=== PATIENT | male | born 1965 | race Hispanic/Latino ===

== ENCOUNTER 2024-10-03 16:57 | Emergency (ER) | payer OTHER ==
[~2024-10-03] VITALS: Ht 167.6 cm; Wt 92.5 kg
--- NOTE | 2024-10-03 17:35 | ERN ---
General Chief Complaint: Cellulitis Stated Complaint: CELLULITIS Time Seen by MD: 17:04 History of Present Illness Initial Comments 59-year-old male patient brought in by law enforcement for symptoms of left leg pain and swelling. Patient noticed swelling and pain and left leg [id number] since yesterday. Patient describes the pain as tight and feels as if it is going to explode. Patient also has warmth, tenderness, erythema [id number]. Patient says his pain having a little congestion last week and was prescribed amoxicillin. Patient denies any trauma and bites to the leg. Patient has a past medical history diabetes and hypertension. Allergies: Coded Allergies: ibuprofen (Unverified Allergy, Unknown, 10/03/24) piroxicam (Unverified Allergy, Unknown, 10/03/24) tolmetin (Unverified Allergy, Unknown, 10/03/24) Past Medical History Past Medical History: Diabetes-Type II, Hypertension Past Surgical History: Other Surgical History Other: LT KNEE SX, LT EAR SX ROS Dictation CONSTITUTIONAL: No chills, no fever, no weakness, no diaphoresis, no malaise. HEAD/FACE: No signs of trauma. EENT: No eye pain, no blurred vision, no tearing, no double vision, no ear pain, no ear discharge, no nose pain, no nasal congestion, no throat pain, no throat swelling, no mouth pain. RESPIRATORY: No cough, no SOB, no orthopnea, no PND, no wheezing. CARDIOVASCULAR: No chest pain, no edema, no palpitations, no syncope. GASTROINTESTINAL/ABDOMINAL: No abdominal pain, no constipation, no diarrhea, no nausea, no vomiting. GENITOURINARY: No abnormal discharge, no dysuria, no frequent urination, no hematuria. No complaints of pain in the genitals. MUSCULOSKELETAL: No back pain, no gout, no joint pain, no joint swelling, no muscle pain, no muscle stiffness, no neck pain. INTEGUMENTARY: No change in color, no change in hair/nails, no dryness, no lesion, no lumps, no rash. NEUROLOGICAL/PSYCH: No anxiety, not depressed, no emotional problem, no headache, no numbness, no pre-existing deficit, no history of seizures, no trem ors, no weakness. HEMATOLOGIC/LYMPHATIC: Not anemic, no history of blood clots, no apparent bleeding, no bruising, glands not swollen. All Systems Negative, Except as Noted. Physical Exam Physical Exam Dictation VITAL SIGNS: Reviewed. GENERAL APPEARANCE: Alert, oriented x3 HEAD AND FACE: Non-traumatic. EYES: PERRL, pink conjunctivas, eyelid no trauma, anterior chamber clear. EARS: Pinnas intact and no signs of trauma or erythema. Ear canals clear and no discharge. TMs no erythema. NOSE: No discharge, no bleeding. OROPHARYNX: Mouth normal, teeth no caries, tongue pink. Pharynx clear, no erythema. Tonsils no exudates, no abscesses noted. Mucous membrane moist. NECK: Supple, non-tender, no thyromegaly, no masses, no JVD, no bruits. BREAST: Deferred. CHEST: No tenderness, no crepitus, no paradoxical movement, no retractions. LUNGS: Clear, well-ventilated, symmetric, no rales, no wheezing, no rhonchi, no stridor, good breath sounds bilaterally. HEART: Regular rate, regular rhythm, no murmur, no gallops. VASCULAR: No peripheral edema. ABDOMEN: Soft, positive bowel sounds, nondistended, no guarding, nontender, no rebound, no masses no hepatomegaly, no splenomegaly, no Peters's sign, no hernias. RECTAL: Deferred. GENITAL: Deferred. NEUROLOGICAL: Normal speech, gross motor function intact, gross sensory function intact. MUSCULOSKELETAL: Neck nontender, full range of motion, back nontender, full range of motion. EXTREMITIES: Nontender, full range of motion. SKIN: Color pink, dry, no turgor, no rash, no lacerations, no abrasions, no contusions. LYMPHATICS: Deferred. Results Laboratory and Microbiology Lab and Micro Result Laboratory Tests Test 10/03/24 18:09 10/03/24 19:56 White Blood Count 5.9 K/uL (4.8-10.8) Red Blood Count 4.66 MIL/uL (4.50-6.20) Hemoglobin 15.1 g/dL (14.0-18.0) Hematocrit 42.4 % (42-54) Mean Corpuscular Volume 91.0 fL (79-99) Mean Corpuscular Hemoglobin 32.4 pg (27.0-33.0) Mean Corpuscular Hemoglobin Concent 35.6 g/dL (32.0-36.0) Red Cell Distribution Width 12.3 % (11.0-15.5) Platelet Count 94 K/uL (130-400) L Mean Platelet Volume 9.6 fL (7.5-10.5) Immature Granulocyte % (Auto) 0.7 % (0-1) Neutrophils (%) (Auto) 80.0 % (40.0-77.0) H Lymphocytes (%) (Auto) 12.8 % (21.0-51.0) L Monocytes (%) (Auto) 6.0 % (3.0-13.0) Eosinophils (%) (Auto) 0.2 % (0.0-8.0) Basophils (%) (Auto) 0.3 % (0.0-5.0) Neutrophils # (Auto) 4.7 K/uL (1.8-7.7) Lymphocytes # (Auto) 0.8 K/uL (1.0-4.8) L Monocytes # (Auto) 0.4 K/uL (0.1-1.0) Eosinophils # (Auto) 0.01 K/uL (0.00-0.70) Basophils # (Auto) 0.02 K/uL (0.00-0.20) Absolute Immature Granulocyte (auto 0.04 K/uL (0-1) Nucleated Red Blood Cells 0.0 % (0.0-0.19) Erythrocyte Sedimentation Rate 49 MM/HR (0-20) H Sodium Level 138 mmol/L (136-145) Potassium Level 3.6 mmol/L (3.5-5.1) Chloride Level 102 mmol/L (101-111) Carbon Dioxide Level 30 mmol/L (21-32) Blood Urea Nitrogen 14 mg/dL (7-18) Creatinine 0.9 mg/dL (0.5-1.3) Glomerular Filtration Rate Calc 97 mL/min (>90) Random Glucose 132 mg/dL (70-105) H Total Calcium 9.0 mg/dL (8.5-10.1) Aspartate Amino Transf (AST/SGOT) 52 U/L (10-37) H Alanine Aminotransferase (ALT/SGPT) 33 U/L (12-78) C-Reactive Protein, Quantitative 260.10 mg/L (0.5-3.0) H Procalcitonin 1.21 ng/mL (0.05-0.5) H Lactic Acid Level 2.0 mmol/L (0.8-2.5) REASON: Left leg swelling and pain ORDERING PHYSICIAN: CYNTHIA PENNINGTON MD PROCEDURE: VENOUS UNI - US VENOUS DOPPLER UNILATERAL EXAM: US for Deep Venous Thrombosis, left Lower Extremity CLINICAL HISTORY: Patient presents with leg pain and swelling. TECHNIQUE: Real-time ultrasound scan of the veins of the left lower extremity with color Doppler flow, spectral waveform analysis, and compression. COMPARISON: None provided. FINDINGS: DEEP VEINS: The common femoral vein (CFV), profunda femoris artery (PFA), proximal, mid, and distal superficial femoral vein (SFV), popliteal vein, and posterior tibial veins (PTV) are compressible with normal color Doppler flow and augmentation. No evidence of intraluminal thrombus. No evidence of deep venous thrombosis. SUPERFICIAL VEINS: The great saphenous vein (GSV) is patent with normal compressibility and Doppler flow. LYMPH NODES: There are multiple enlarged left inguinal lymph nodes measuring 4.4 x 1.1 cm, 1.6 x 1.2 cm, 1.2 x 1.3 cm, 1.5 x 1.1 cm and 2.2 x 1.8 cm. SOFT TISSUES: No popliteal fossa cyst or other soft tissue abnormality. IMPRESSION: No deep venous thrombosis in the left lower extremity. Multiple enlarged left inguinal lymph nodes, largest measuring 4.4 x 1.1 cm. /[place] REASON: cellulitus ORDERING PHYSICIAN: DENNYS JORGE OIL WELL DRILLER PROCEDURE: TIBFIB LT - TIBIA/FIBULA 2VWS LT EXAM: CR Left Tibia and Fibula, 3 views. CLINICAL HISTORY: Cellulitis. COMPARISON: None provided. FINDINGS: No acute fracture or aggressive appearing osseous lesion. Status post ACL reconstruction. Mild osteoarthritis in the included left knee and ankle joints. Mild diffuse soft tissue swelling is present. IMPRESSION: No acute bony abnormality is evident. /[place] Labs Reviewed?: Yes MDM The patient is a 59-year-old male with a history of diabetes who presents to the emergency department with complaints of left lower extremity swelling and redness onset yesterday. Patient is currently being treated for an upper respiratory infection on amoxicillin. CBC showed no leukocytosis, no anemia, chemistry showed a normal renal function, procalcitonin of 1.21, lactic acid of 2.0. Ultrasound showed no evidence of DVT, x-ray was unremarkable. On physical exam patient is in no acute distress, nontoxic appearance. We will discharge patient on clindamycin for cellulitis. Patient is under police custody and isn't interested to return if symptoms worsen. Differential diagnosis: Cellulitis, DVT, sepsis Need for hospitalization: Patient does not meet criteria for hospitalization. There are no social concerns with this patient. ED Course Orders Procedure Category Date Status Time Us Venous Doppler US 10/03/24 Resulted Unilateral 17:23 Cbc With Differential LAB 10/03/24 Complete 17:23 Basic Metabolic Panel LAB 10/03/24 Complete 17:23 Erythrocyte LAB 10/03/24 Complete Sedimentation Rate 17:23 Crp Quantitative LAB 10/03/24 Complete 17:23 Aspartate LAB 10/03/24 Complete Aminotransferase 17:23 Alanine LAB 10/03/24 Complete Aminotransferase 17:23 Tibia/Fibula 2vws Lt RAD 10/03/24 Resulted 18:56 Lactic Acid LAB 10/03/24 Complete 18:56 Procalcitonin LAB 10/03/24 Complete 18:56 *Nursing CPOE 10/03/24 Transmitted Communication: 19:16 Clindamycin 150mg Cap PHA 10/03/24 In Process (Cleocin 150mg Cap 21:00 Hydrocodone/Apap PHA 10/03/24 In Process 5/325 ([place] 5/325mg) 21:00 Current Medications Medications (Trade) Dose Ordered Sig/Eneida Route PRN Reason Start Time Stop Time Status Last Admin Dose Admin Acetaminophen/ Hydrocodone Bitart (NORco 5/325MG) 1 tab ONCE ONCE PO 10/03/24 21:00 10/03/24 21:01 Clindamycin HCl (Cleocin 150mg Cap) 300 mg ONCE ONCE PO 10/03/24 21:00 10/03/24 21:01 Vital Signs Date Time Temp Pulse Resp B/P (MAP) Pulse Ox O2 Delivery O2 Flow Rate FiO2 10/03/24 16:58 99.7 105 16 146/88 100 Room Air DX & DISP Disposition: Discharge Departure Impression: Primary Impression: Cellulitis of lower leg Additional Impression: Cellulitis of left lower leg Condition: Stable Scripts Clindamycin HCl (Clindamycin HCl) 300 Mg Capsule 1 CAP PO QID for 10 Days, #40 CAP 0 Refills Prov: DENNYS JORGE 10/03/24 Additional Instructions: Please take your medications as prescribed. Follow up with the primary doctor in 1-2 days. If anything worsens please return to ER. FOLLOW-UP WITH PRIMARY CARE PROVIDER IN 1 TO 2 DAYS. TAKE MEDICATIONS DIRECTED HERE IN THE EMERGENCY ROOM. OKAY TO CONTINUE HOME MEDICATIONS UNLESS OTHERWISE DISCUSSED DURING YOUR VISIT IN THE EMERGENCY ROOM TODAY. RETURN TO YOUR NEAREST EMERGENCY ROOM IF SYMPTOMS WORSEN OR IF THERE IS NO IMPROVEMENT. CALL 911 IF YOU NEED IMMEDIATE ASSISTANCE. TAKE TYLENOL [id number] NEEDED AND IF NO CONTRAINDICATIONS ARE PRESENT. INCREASE ORAL HYDRATION. A WOUND CULTURE OR URINE CULTURE WAS ORDERED HERE IN THE EMERGENCY ROOM DEPARTMENT PLEASE FOLLOW-UP WITH PRIMARY CARE PROVIDER AND ADVISE THEM TO GET REPEAT PORTS FROM OUR FACILITY. IF YOU HAD ANY HIEN WRAP/SPLINTS THAT WERE APPLIED HERE, PLEASE DO NOT REMOVE THEM UNTIL YOU SEE YOUR PRIMARY CARE OR SPECIALTY. Referrals: SELF,REFERRAL (PCP) Time of Disposition: 21:02 I have reviewed the case, and I agree with, Diagnosis and Plan CYNTHIA PENNINGTON MD Oct 03, 2024 17:35 DENNYS JOREG Oct 03, 2024 21:04
[2024-10-03 18:38] LABS: IMMATURE GRANULOCYTE ABSOLUTE 0.04 K/uL (0-1); NUCLEATED RED BLOOD CELLS 0.0 % (0.0-0.19); PLATELET COUNT (AUTO) 94 K/uL (130-400); RED BLOOD CELL COUNT(AUTO) 4.66 MIL/uL (4.50-6.20); RED CELL DISTRIBUTION WIDTH 12.3 % (11.0-15.5); WHITE BLOOD COUNT (AUTO) 5.9 K/uL (4.8-10.8)
[2024-10-03 18:45] LABS: CREATININE 0.9 mg/dL (0.5-1.3); GLOMERULAR FILTR. RATE CALC 97.0 mL/min (>90); GLUCOSE,RANDOM 132.0 mg/dL (70-105); SODIUM SERUM 138.0 mmol/L (136-145); UREA NITROGEN, BLOOD 14.0 mg/dL (7-18)
[2024-10-03 18:48] LABS: ASPARTATE AMINOTRANSFERASE 52.0 U/L (10-37)
--- NOTE | 2024-10-03 19:22 | HMCIMG ---
EXAM: US for Deep Venous Thrombosis, left Lower Extremity CLINICAL HISTORY: Patient presents with leg pain and swelling. TECHNIQUE: Real-time ultrasound scan of the veins of the left lower extremity with color Doppler flow, spectral waveform analysis, and compression. COMPARISON: None provided. FINDINGS: DEEP VEINS: The common femoral vein (CFV), profunda femoris artery (PFA), proximal, mid, and distal superficial femoral vein (SFV), popliteal vein, and posterior tibial veins (PTV) are compressible with normal color Doppler flow and augmentation. No evidence of intraluminal thrombus. No evidence of deep venous thrombosis. SUPERFICIAL VEINS: The great saphenous vein (GSV) is patent with normal compressibility and Doppler flow. LYMPH NODES: There are multiple enlarged left inguinal lymph nodes measuring 4.4 x 1.1 cm, 1.6 x 1.2 cm, 1.2 x 1.3 cm, 1.5 x 1.1 cm and 2.2 x 1.8 cm. SOFT TISSUES: No popliteal fossa cyst or other soft tissue abnormality. IMPRESSION: No deep venous thrombosis in the left lower extremity. Multiple enlarged left inguinal lymph nodes, largest measuring 4.4 x 1.1 cm. /[place]
[2024-10-03 19:48] LABS: ERYTHROCYTE SEDIMENTATION RATE 49 MM/HR (0-20)
--- NOTE | 2024-10-03 20:41 | HMCIMG ---
EXAM: CR Left Tibia and Fibula, 3 views. CLINICAL HISTORY: Cellulitis. COMPARISON: None provided. FINDINGS: No acute fracture or aggressive appearing osseous lesion. Status post ACL reconstruction. Mild osteoarthritis in the included left knee and ankle joints. Mild diffuse soft tissue swelling is present. IMPRESSION: No acute bony abnormality is evident. /[place]
[2024-10-03] MEDS ORDERED: CLIN-141 PO (21:04)
[2024-10-03] MEDS: CLINDAMYCIN 150 MG CAP PO ONE (21:56)
[2024-10-03] MEDS: HYDROcodone/APAP 5/325 1 TAB TABLET PO ONE (21:56)
[2024-10-03 22:04] VITALS: BP 135/78; PULSE 81; RESP 18; TEMP 98.3; O2SAT 99
[2024-10-04] MEDS ORDERED: LISI20TA24 PO (20:02)
[2024-10-04] MEDS ORDERED: NPH,100V11 SQ (20:02)
[2024-10-04] MEDS ORDERED: PROM25TA7 PO (20:02)
[2024-10-04] MEDS ORDERED: CARV3.12 PO (20:02)
[2024-10-04] MEDS ORDERED: METF-446 PO (20:02)
[2024-10-04] MEDS ORDERED: CLOT15CR23 TP (20:02)
[2024-10-04] MEDS ORDERED: AMOX500C2 PO (20:02)
[2024-10-04] MEDS ORDERED: ESCI-8 PO (20:02)
[2024-10-04] MEDS ORDERED: ACET-3859 PO (20:02)
[2024-10-04] MEDS ORDERED: INSREG SQ (20:02)
[2024-10-04] MEDS ORDERED: GLIP10TA16 PO (20:02)
[2024-10-04] MEDS ORDERED: TERA10CA4 PO (20:02)
[2024-10-04] MEDS ORDERED: TOLN28CR6 TP (20:02)
[2024-10-04] MEDS ORDERED: FAMO20TA8 PO (20:02)
[2024-10-04] MEDS ORDERED: DIPH50CA37 PO (20:02)
[2024-10-04] MEDS ORDERED: CETI10TA87 PO (20:02)
== END 2024-10-03 22:06 ==
LOC: EDH 16:57 → EEVIPCON 16:57 → EDH 22:06
DX: L03.116 Cellulitis of left lower limb (principal); E11.9 Type 2 diabetes mellitus without complications; I10 Essential (primary) hypertension; Z88.6 Allergy status to analgesic agent
CPT/HCPCS: 36415; 73590; 80048; 83605; 84145; 84450; 84460; 85025; 85651; 86140; 93971; 99284

== ENCOUNTER 2024-10-04 10:08 | Inpatient (IN) | payer OTHER ==
[~2024-10-04] VITALS: Ht 167.6 cm; Wt 89.0 kg
[~2024-10-04 10:08] MED LIST: CLIN-141 PO
[2024-10-04] MEDS ORDERED: VANCOMYCIN KIT 1 GM/250 ML IV.KIT IV SCH (10:30)
[2024-10-04 10:42] LABS: IMMATURE GRANULOCYTE ABSOLUTE 0.05 K/uL (0-1); NUCLEATED RED BLOOD CELLS 0.0 % (0.0-0.19); PLATELET COUNT (AUTO) 106 K/uL (130-400); RED BLOOD CELL COUNT(AUTO) 4.22 MIL/uL (4.50-6.20); RED CELL DISTRIBUTION WIDTH 12.5 % (11.0-15.5); WHITE BLOOD COUNT (AUTO) 5.9 K/uL (4.8-10.8)
[2024-10-04 10:49] LABS: CREATININE 0.8 mg/dL (0.5-1.3); GLOMERULAR FILTR. RATE CALC 101.0 mL/min (>90); GLUCOSE,RANDOM 128.0 mg/dL (70-105); SODIUM SERUM 135.0 mmol/L (136-145); UREA NITROGEN, BLOOD 15.0 mg/dL (7-18)
[2024-10-04] MEDS: LACTATED RINGERS 1000ML 1,000 ML IV SCH (11:21)
[2024-10-04] MEDS ORDERED: VANCOMYCIN PROTOCOL PER PHARMACY IV SCH (11:30)
--- NOTE | 2024-10-04 11:38 | ERN ---
General Chief Complaint: Lower Extremity Pain/Injury Stated Complaint: LEFT LEG SWELLING Time Seen by MD: 10:13 History of Present Illness Initial Comments Mr. Montes is a 59-year-old male brought in by law enforcement for worsening left leg cellulitis. Patient noticed redness warmth and pain in his left lower extremity below-knee three days ago. Patient was seen in ED yesterday for the same symptoms and was prescribed oral clindamycin. However patient's symptoms worsened and the rash has spread above his knee to his upper thigh. Patient states pain worsened. Patient denies fever. Allergies: Coded Allergies: ibuprofen (Unverified Allergy, Unknown, 10/03/24) piroxicam (Unverified Allergy, Unknown, 10/03/24) tolmetin (Unverified Allergy, Unknown, 10/03/24) Home Meds Active Scripts Clindamycin HCl (Clindamycin HCl) 300 Mg Capsule, 1 CAP PO QID for 10 Days, #40 CAP 0 Refills Prov:DENNYS JORGE SYSTEMS TEST ANALYST 10/03/24 Past Medical History Past Medical History: Diabetes-Type II, Hypertension Past Surgical History: Other Surgical History Other: LT KNEE SX, LT EAR SX ROS Dictation CONSTITUTIONAL: No chills, no fever, no weakness, no diaphoresis, no malaise. HEAD/FACE: No signs of trauma. EENT: No eye pain, no blurred vision, no tearing, no double vision, no ear pain, no ear discharge, no nose pain, no nasal congestion, no throat pain, no throat swelling, no mouth pain. RESPIRATORY: No cough, no SOB, no orthopnea, no PND, no wheezing. CARDIOVASCULAR: No chest pain, no edema, no palpitations, no syncope. GASTROINTESTINAL/ABDOMINAL: No abdominal pain, no constipation, no diarrhea, no nausea, no vomiting. GENITOURINARY: No abnormal discharge, no dysuria, no frequent urination, no hematuria. No complaints of pain in the genitals. MUSCULOSKELETAL: No back pain, no gout, no joint pain, no joint swelling, no muscle pain, no muscle stiffness, no neck pain. INTEGUMENTARY: Left lower extremity erythematous rash from above ankle to upper thigh, no change in hair/nails, no dryness, no lesion, no lumps. NEUROLOGICAL/PSYCH: No anxiety, not depressed, no emotional problem, no headache, no numbness, no pre-existing deficit, no history of seizures, no tremors, no weakness. HEMATOLOGIC/LYMPHATIC: Not anemic, no history of blood clots, no apparent bleeding, no bruising, glands not swollen. All Systems Negative, Except as Noted. Physical Exam Physical Exam Dictation VITAL SIGNS: Reviewed. GENERAL APPEARANCE: Alert, oriented x3 HEAD AND FACE: Non-traumatic. EYES: PERRL, pink conjunctivas, eyelid no trauma, anterior chamber clear. EARS: Pinnas intact and no signs of trauma or erythema. Ear canals clear and no discharge. TMs no erythema. NOSE: No discharge, no bleeding. OROPHARYNX: Mouth normal, teeth no caries, tongue pink. Pharynx clear, no erythema. Tonsils no exudates, no abscesses noted. Mucous membrane moist. NECK: Supple, non-tender, no thyromegaly, no masses, no JVD, no bruits. BREAST: Deferred. CHEST: No tenderness, no crepitus, no paradoxical movement, no retractions. LUNGS: Clear, well-ventilated, symmetric, no rales, no wheezing, no rhonchi, no stridor, good breath sounds bilaterally. HEART: Regular rate, regular rhythm, no murmur, no gallops. VASCULAR: No peripheral edema. ABDOMEN: Soft, positive bowel sounds, nondistended, no guarding, nontender, no rebound, no masses no hepatomegaly, no splenomegaly, no Peters's sign, no hernias. RECTAL: Deferred. GENITAL: Deferred. NEUROLOGICAL: Normal speech, gross motor function intact, gross sensory fun ction intact. MUSCULOSKELETAL and Extremities: LLE poorly defined erythematous rash above ankle to upper thigh, tender to palpation. SKIN: Erythematous rash above left ankle to upper thigh, Color pink, dry, no turgor, no lacerations, no abrasions, no contusions. LYMPHATICS: Swollen left inguinal lymph nodes Results Laboratory and Microbiology Lab and Micro Result Laboratory Tests Test 10/04/24 10:33 White Blood Count 5.9 K/uL (4.8-10.8) Red Blood Count 4.22 MIL/uL (4.50-6.20) L Hemoglobin 13.7 g/dL (14.0-18.0) L Hematocrit 37.8 % (42-54) L Mean Corpuscular Volume 89.6 fL (79-99) Mean Corpuscular Hemoglobin 32.5 pg (27.0-33.0) Mean Corpuscular Hemoglobin Concent 36.2 g/dL (32.0-36.0) H Red Cell Distribution Width 12.5 % (11.0-15.5) Platelet Count 106 K/uL (130-400) L Mean Platelet Volume 9.8 fL (7.5-10.5) Immature Granulocyte % (Auto) 0.9 % (0-1) Neutrophils (%) (Auto) 72.8 % (40.0-77.0) Lymphocytes (%) (Auto) 16.4 % (21.0-51.0) L Monocytes (%) (Auto) 8.2 % (3.0-13.0) Eosinophils (%) (Auto) 1.2 % (0.0-8.0) Basophils (%) (Auto) 0.5 % (0.0-5.0) Neutrophils # (Auto) 4.3 K/uL (1.8-7.7) Lymphocytes # (Auto) 1.0 K/uL (1.0-4.8) Monocytes # (Auto) 0.5 K/uL (0.1-1.0) Eosinophils # (Auto) 0.07 K/uL (0.00-0.70) Basophils # (Auto) 0.03 K/uL (0.00-0.20) Absolute Immature Granulocyte (auto 0.05 K/uL (0-1) Nucleated Red Blood Cells 0.0 % (0.0-0.19) Red Blood Cell Morphology See comments Sodium Level 135 mmol/L (136-145) L Potassium Level 3.6 mmol/L (3.5-5.1) Chloride Level 100 mmol/L (101-111) L Carbon Dioxide Level 30 mmol/L (21-32) Blood Urea Nitrogen 15 mg/dL (7-18) Creatinine 0.8 mg/dL (0.5-1.3) Glomerular Filtration Rate Calc 101 mL/min (>90) Random Glucose 128 mg/dL (70-105) H Total Calcium 8.2 mg/dL (8.5-10.1) L MDM Chief complaint: Patient presented with worsening left leg cellulitis that extends from above the ankle to upper thigh. Past medical history: Diabetes, hypertension Vitals: Vitals are stable, borderline tachycardic Review of systems: ROS is remarkable for poorly defined painful, erythematous rash extending about uncontrolled upper thigh. Physical Exam: PE is remarkable for tender erythematous rash extending above the ankle to the upper thigh, no crepitus. Labs: His labs showed elevated ESR 49, CRP 260 procalcitonin, 1.2. His white blood cell count is normal and sugars are 128. Imaging: Left leg venous Doppler ruled out DVT, significant for swollen left inguinal lymph nodes. No osseous deformities found. Differential diagnosis: Leg cellulitis, DVT, necrotizing fasciitis, osteomyeli tis. Assessment and Plan: Patient presented to the ED with worsening left leg cellulitis extending up to the upper thigh. Oral antibiotics failed to control the infection. Patient is a prisoner and and has difficulties following up on an outpatient basis. Patient needs intravenous antibiotic therapy and surgical consult therefore requiring admission. ED Course Orders Procedure Category Date Status Time Lactated Ringers PHA 10/04/24 In Process 1000ml (Lactated 10:30 Ceftriaxone 1g Vial PHA 10/04/24 Complete (Rocephine 1g Inj) 10:30 Vancomycin 1g/250ml PHA 10/04/24 Complete Kit (Vancomycin 1g/2 10:30 Cbc With Differential LAB 10/04/24 Complete 10:19 Basic Metabolic Panel LAB 10/04/24 Complete 10:19 *Nursing CPOE 10/04/24 Transmitted Communication: 10:26 Current Medications Medications (Trade) Dose Ordered Sig/Eneida Route PRN Reason Start Time Stop Time Status Last Admin Dose Admin Ceftriaxone Sodium (ROCEphine 1G INJ) 1 gm Q24H IVPB 10/04/24 10:30 10/04/24 11:19 DC Lactated Ringer's 1,000 ml @ 125 mls/hr Q8H IV 10/04/24 10:30 11/03/24 10:29 10/04/24 11:21 Vancomycin HCl (Vancomycin 1g/ 250ml Kit) 1 gm Q12H IV 10/04/24 10:30 10/04/24 10:28 DC Vital Signs Date Time Temp Pulse Resp B/P (MAP) Pulse Ox O2 Delivery O2 Flow Rate FiO2 10/04/24 11:09 84 19 123/64 97 Room Air* 0 21 10/04/24 10:09 99.1 94 14 113/77 96 Room Air 0 DX & DISP Disposition: Inpatient Departure Impression: Primary Impression: Cellulitis of left lower extremity Additional Impression: Lymphadenopathy, inguinal Condition: Stable Referrals: SELF,REFERRAL (PCP) I performed a substantive portion of the visit. I have reviewed and personally made and approve the management plan that is documented in the notes by myself with NIGEL/resident. I acknowledged full responsibility for the patient's management plan. CYNTHIA PENNINGTON MD Oct 04, 2024 11:38 PATRICIA GONZALES DO Oct 04, 2024 18:36
--- NOTE | 2024-10-04 12:06 | NUR ---
DCP: HOME SW spoke with officer Peg Mclean. pt is an inmate at [facility] and will return to their custody at [place]. Addendum: 10/04/24 at 1207 by MIKE WEI SS Amended: Links added.
[2024-10-04] MEDS: VANCOMYCIN 2GM/500 ML BAG 500 ML IV ONE (13:15)
--- NOTE | 2024-10-04 16:24 | NUR ---
REPORT GIVEN TO ARABELLA SIMPSON AT THIS TIME./[place]
--- NOTE | 2024-10-04 17:12 | NUR ---
GAVE REPORT TO TO RALPH SIMPSON.
[2024-10-04 17:50] VITALS: BP 145/76; PULSE 95; RESP 18; TEMP 97.8
[2024-10-04 18:00] VITALS: O2SAT 100
[2024-10-04] MEDS ORDERED: NPH,100V11 SQ (20:02)
[2024-10-04] MEDS ORDERED: TERA10CA4 PO (20:02)
[2024-10-04] MEDS ORDERED: CLOT15CR23 TP (20:02)
[2024-10-04] MEDS ORDERED: INSREG SQ (20:02)
[2024-10-04] MEDS ORDERED: FAMO20TA8 PO (20:02)
[2024-10-04] MEDS ORDERED: ESCI-8 PO (20:02)
[2024-10-04] MEDS ORDERED: CARV3.12 PO (20:02)
[2024-10-04] MEDS ORDERED: AMOX500C2 PO (20:02)
[2024-10-04] MEDS ORDERED: GLIP10TA16 PO (20:02)
[2024-10-04] MEDS ORDERED: DIPH50CA37 PO (20:02)
[2024-10-04] MEDS ORDERED: METF-446 PO (20:02)
[2024-10-04] MEDS ORDERED: CETI10TA87 PO (20:02)
[2024-10-04] MEDS ORDERED: ACET-3859 PO (20:02)
[2024-10-04] MEDS ORDERED: LISI20TA24 PO (20:02)
[2024-10-04] MEDS ORDERED: PROM25TA7 PO (20:02)
[2024-10-04] MEDS ORDERED: TOLN28CR6 TP (20:02)
[2024-10-04 20:20] VITALS: O2SAT 98
[2024-10-04 22:41] VITALS: BP 122/68; PULSE 94; RESP 18; TEMP 98.2
[2024-10-04] MEDS: VANCOMYCIN 1G/250ML KIT 250 ML IV SCH (22:45)
[2024-10-05 00:22] VITALS: BP 114/70; PULSE 94; RESP 17; TEMP 99.5
[2024-10-05 05:39] VITALS: BP 134/78; PULSE 90; RESP 19; TEMP 98.9
[2024-10-05 05:56] LABS: IMMATURE GRANULOCYTE ABSOLUTE 0.04 K/uL (0-1); NUCLEATED RED BLOOD CELLS 0.0 % (0.0-0.19); PLATELET COUNT (AUTO) 95 K/uL (130-400); RED BLOOD CELL COUNT(AUTO) 3.80 MIL/uL (4.50-6.20); RED CELL DISTRIBUTION WIDTH 12.6 % (11.0-15.5); WHITE BLOOD COUNT (AUTO) 5.8 K/uL (4.8-10.8)
[2024-10-05 06:02] LABS: CREATININE 0.6 mg/dL (0.5-1.3); GLOMERULAR FILTR. RATE CALC 110.0 mL/min (>90); GLUCOSE,RANDOM 105.0 mg/dL (70-105); SODIUM SERUM 136.0 mmol/L (136-145); UREA NITROGEN, BLOOD 13.0 mg/dL (7-18)
[2024-10-05] MEDS: PoTASSium chloRIDE 20MEQ ER 20 MEQ ERTAB PO PRN (06:20)
[2024-10-05] MEDS: MAGNESIUM 2GM PREMIX 50ML 50 ML IV PRN (06:21)
[2024-10-05] MEDS ORDERED: PoTASSium chl 10% ELIXIR 20MEQ 20 MEQ/15 ML UDCUP PO PRN (06:30)
[2024-10-05 08:00] VITALS: BP 123/72; PULSE 91; RESP 16; TEMP 98; O2SAT 97
--- NOTE | 2024-10-05 08:22 | HP ---
DATE OF SERVICE: 10/04/2024. HISTORY AND PHYSICAL PRESENTING COMPLAINT: Fever, left leg pain, swelling, and redness. HISTORY OF PRESENT ILLNESS: A 59-year-old male with history of diabetes mellitus, hypertension, and obesity, who was [place] in from the halfway with left leg pain, swelling, and redness. The patient claims symptoms started about 3 days ago with left leg pain and redness. He was being treated with clindamycin without improvement. No history of trauma or fall. Denies insect bite. Due to increasing spread to the thigh, the patient was sent to the emergency room for further evaluation. The patient denied history of similar infection in the past. Venous Doppler came back unremarkable. X-ray also unremarkable. PAST MEDICAL HISTORY: * Diabetes mellitus. * Hypertension. * Obesity. PAST SURGICAL HISTORY: * Left knee surgery. * Left ear surgery. ALLERGIES: No known drug allergies. HOME MEDICATIONS: Clindamycin. SOCIAL HISTORY: The patient at present is incarcerated. Denies alcohol, tobacco, or illicit drug use. FAMILY HISTORY: Positive for diabetes mellitus. REVIEW OF SYSTEMS: CONSTITUTIONAL: No fever. No chills. No weight loss or night sweats. EYES: No eye pain. No photophobia or diplopia. HENT: No sore throat. No rhinorrhea or earache. NECK: No neck pain or neck swelling. RESPIRATORY: No cough, hemoptysis, or pleuritic pain. CARDIOVASCULAR: No chest pain. No palpitations or orthopnea. GASTROINTESTINAL: Denied nausea, vomiting, or abdominal pain. GENITOURINARY: No dysuria, urgency, or urinary frequency. CENTRAL NERVOUS SYSTEM: No headache, dyspnea, or slurred speech. PSYCHIATRY: No depression. No suicidal ideation. EXTREMITIES: Positive for left leg pain, swelling, and redness. PHYSICAL EXAMINATION: GENERAL: Elderly male, awake, not in distress. VITAL SIGNS: Temperature is 99.1, pulse 84, respiratory rate 19, BP 123/64. EYES: No icterus. Pupils are equal and reactive. HENT: No oral thrush seen. Moist oral mucosa. NECK: Supple. No JVD or thyromegaly. LUNGS: Good air entry. No rales. No rhonchi. CARDIOVASCULAR SYSTEM: S1 and S2 regular. No murmur heard. ABDOMEN: Full, soft, nontender. Bowel sounds are present. CENTRAL NERVOUS SYSTEM: Awake, alert, and oriented x 3. No focal deficits. SKIN: No rashes. No itchiness. LYMPHATIC: There is left inguinal lymphadenopathy. BACK: No deformity. No pressure ulcer. EXTREMITIES: Cellulitis of the left leg, which extends all the way to the thigh. VASCULAR: No ischemia or gangrene of extremities. LABORATORY AND IMAGING DATA: Sodium 135, potassium 3.6, BUN 15, creatinine 0.8. WBC 5.9, hemoglobin 13.7, platelets 106. ____ negative. X-ray unremarkable. ASSESSMENT: A 59-year-old male presented with left leg pain, swelling, and redness. CURRENT PROBLEMS: Include: * Left lower extremity cellulitis. * Diabetes mellitus. * Hypertension. * Obesity. PLAN: * Admit the patient to medical floor. * Start the patient on vancomycin. * Start the patient on cefepime. * Lovenox for DVT prophylaxis. * ADA diet. * Insulin sliding scale. * Keep leg elevated. * Followup cultures. TID: [id number] RECEIPT: [id number] MTDD
[2024-10-05] MEDS: ENOXAPARIN SODIUM 40 MG/0.4 ML SYRINGE SQ SCH (09:00)
--- NOTE | 2024-10-05 09:00 | NUR ---
LOVENOX HELD Platelet level below 100
[2024-10-05 11:42] VITALS: BP 119/76; PULSE 90; RESP 16; TEMP 98.1
--- NOTE | 2024-10-05 12:06 | PN ---
INFECTIOUS DISEASE PROGRESS NOTE Date of Service: Oct 05, 2024 SUBJECTIVE: This 59-year-old patient who was brought to the hospital from [facility] with chief complaint of left lower extremity pain, swelling and erythema. Left leg is very tender on palpation. Patient has been started on vancomycin and cefepime. No fever, temperature is 98.1. No reports of nausea or vomiting. We will continue to follow patient's care. PHYSICAL EXAM EYES: Anicteric. Pupils equal and reactive. HENT: No oral thrush seen, moist Oral mucosa. NECK: Supple, no JVD or thyromegaly. LUNGS: Good air entry. No rales, no rhonchi. CARDIOVASCULAR: S1, S2 regular. No murmur heard. ABDOMEN: Soft, non tender, bowel sounds present, no organomegaly CENTRAL NERVOUS SYSTEM: Awake, alert, oriented x 3. SKIN: No rashes, no swelling. LYMPHATICS: No peripheral lymphadenopathy MUSCULOSKELETAL: No joint swelling, erythema or tenderness. EXTREMITIES: No cyanosis or clubbing. Left lower extremity cellulitis. BACK: No deformity, no pressure ulcer. GENITOURINARY: No dysuria or hematuria Vital Sign (Last 12 Hours) 10/05/24 10/05/24 10/05/24 10/05/24 00:22 05:39 08:00 11:42 Temp 99.5 99.0 98.1 98.1 Pulse 94 90 91 90 Resp 17 19 16 16 B/P (MAP) 114/70 134/78 123/72 119/76 Pulse Ox 98 97 96 96 O2 Delivery Room Air Room Air Room Air Room Air O2 Flow Rate 0.0 Intake & Output (last 24hrs) 10/04/24 10/04/24 10/05/24 15:00 23:00 07:00 Intake Total 1450.0 ml Balance 1450.0 ml LABS: Laboratory: Test 10/05/24 11:19 10/05/24 05:25 10/04/24 10:33 Range/Units Whole Blood Glucose 147 H 70-110 MG/DL White Blood Count 5.8 4.8-10.8 K/uL Red Blood Count 3.80 L 4.50-6.20 MIL/uL Hemoglobin 12.4 L 14.0-18.0 g/dL Hematocrit 34.2 L 42-54 % Mean Corpuscular Volume 90.0 79-99 fL Mean Corpuscular Hemoglobin 32.6 27.0-33.0 pg Mean Corpuscular Hemoglobin Concent 36.3 H 32.0-36.0 g/dL Red Cell Distribution Width 12.6 11.0-15.5 % Platelet Count 95 L 130-400 K/uL Mean Platelet Volume 9.1 7.5-10.5 fL Immature Granulocyte % (Auto) 0.7 0-1 % Neutrophils (%) (Auto) 72.1 40.0-77.0 % Lymphocytes (%) (Auto) 16.3 L 21.0-51.0 % Monocytes (%) (Auto) 9.0 3.0-13.0 % Eosinophils (%) (Auto) 1.6 0.0-8.0 % Basophils (%) (Auto) 0.3 0.0-5.0 % Neutrophils # (Auto) 4.2 1.8-7.7 K/uL Lymphocytes # (Auto) 0.9 L 1.0-4.8 K/uL Monocytes # (Auto) 0.5 0.1-1.0 K/uL Eosinophils # (Auto) 0.09 0.00-0.70 K/uL Basophils # (Auto) 0.02 0.00-0.20 K/uL Absolute Immature Granulocyte (auto 0.04 0-1 K/uL Nucleated Red Blood Cells 0.0 0.0-0.19 % Sodium Level 136 136-145 mmol/L Potassium Level 3.5 3.5-5.1 mmol/L Chloride Level 102 101-111 mmol/L Carbon Dioxide Level 26 21-32 mmol/L Blood Urea Nitrogen 13 7-18 mg/dL Creatinine 0.6 0.5-1.3 mg/dL Glomerular Filtration Rate Calc 110 >90 mL/min Random Glucose 105 70-105 mg/dL Total Calcium 7.8 L 8.5-10.1 mg/dL Magnesium Level 1.80 1.80-2.40 mg/dL Red Blood Cell Morphology See comments Hemoglobin A1c 6.5 H 4.0-6.0 % Estimated Average Glucose (eAG) 140 H 70-126 mg/dL ASSESSMENT: Left lower extremity cellulitis. Diabetes Mellitus. Thrombocytopenia. PLAN: Continue vancomycin per pharmacy protocol. Continue cefepime. Continue pain management. Continue antidiabetics. Start Pepcid 20 mg p.o. daily. We will monitor electrolytes. This case was reviewed and discussed with my supervising physician and the above assessment and plan was formulated and agreed upon. ATTESTATION BY PHYSICIAN I have seen and examined the patient. I reviewed the documentation, medical decision making, and treatment plan as noted by the mid-level provider above. I agree with the findings and plan of care. BILLY FREDERICK MD, MIRTA L [facility] Oct 05, 2024 12:06
[2024-10-05] MEDS: FAMOTIDINE 20MG TAB PO SCH (14:01)
[2024-10-05 16:00] VITALS: BP 129/76; PULSE 93; RESP 16; TEMP 98.4
[2024-10-05 20:00] VITALS: BP 115/69; PULSE 92; RESP 18; TEMP 98.5
--- NOTE | 2024-10-05 20:13 | NUR ---
Patient with officer at bedside and officer at door. Handcuffs to bilateral hands. Addendum: 10/05/24 at 2016 by LINUS MIKE RN RN Amended: Links added.
[2024-10-06] VITALS: BP 121/58; PULSE 87; RESP 19; TEMP 98.1
[2024-10-06 04:00] VITALS: BP 118/68; PULSE 88; RESP 20; TEMP 98.5
[2024-10-06 04:08] LABS: NUCLEATED RED BLOOD CELLS 0.0 % (0.0-0.19); PLATELET COUNT (AUTO) 80.0 K/uL (130-400); RED BLOOD CELL COUNT(AUTO) 3.65 MIL/uL (4.50-6.20); RED CELL DISTRIBUTION WIDTH 12.4 % (11.0-15.5); WHITE BLOOD COUNT (AUTO) 5.0 K/uL (4.8-10.8)
[2024-10-06 04:17] LABS: CREATININE 0.7 mg/dL (0.5-1.3); GLOMERULAR FILTR. RATE CALC 105.0 mL/min (>90); GLUCOSE,RANDOM 109.0 mg/dL (70-105); SODIUM SERUM 135.0 mmol/L (136-145); UREA NITROGEN, BLOOD 9.0 mg/dL (7-18)
[2024-10-06 08:00] VITALS: BP 123/64; PULSE 92; RESP 17; TEMP 97.8; O2SAT 99
[2024-10-06 12:00] VITALS: BP 125/76; PULSE 89; RESP 17; TEMP 97.9
--- NOTE | 2024-10-06 15:46 | PN ---
INFECTIOUS DISEASE PROGRESS NOTE Date of Service: Oct 06, 2024 SUBJECTIVE: Patient was seen and examined at bedside in room 427. Patient is awake, alert and oriented x3. Continues with left lower extremity swelling and erythema. Very tender on palpation. Nursing to elevate left lower extremity on two pillows. Continue on vancomycin and cefepime. No fever, temperature is 98.1. Okay to change wrist restraints to plastic restraints. We will continue to follow patient's care. PHYSICAL EXAM EYES: Anicteric. Pupils equal and reactive. HENT: No oral thrush seen, moist Oral mucosa. NECK: Supple, no JVD or thyromegaly. LUNGS: Good air entry. No rales, no rhonchi. CARDIOVASCULAR: S1, S2 regular. No murmur heard. ABDOMEN: Soft, non tender, bowel sounds present, no organomegaly CENTRAL NERVOUS SYSTEM: Awake, alert, oriented x 3. SKIN: No rashes, no swelling. LYMPHATICS: No peripheral lymphadenopathy MUSCULOSKELETAL: No joint swelling, erythema or tenderness. EXTREMITIES: No cyanosis or clubbing. Left lower extremity cellulitis. BACK: No deformity, no pressure ulcer. GENITOURINARY: No dysuria or hematuria Vital Sign (Last 12 Hours) 10/06/24 10/06/24 10/06/24 04:00 08:00 12:00 Temp 98.4 97.9 97.9 Pulse 88 92 89 Resp 20 17 17 B/P (MAP) 118/68 123/64 125/76 Pulse Ox 96 97 99 O2 Delivery Room Air Room Air Room Air LABS: Laboratory: Test 10/06/24 03:51 10/05/24 22:36 10/05/24 11:19 10/05/24 05:25 Range/Units White Blood Count 5.0 4.8-10.8 K/uL Red Blood Count 3.65 L 4.50-6.20 MIL/uL Hemoglobin 11.7 L 14.0-18.0 g/dL Hematocrit 33.0 L 42-54 % Mean Corpuscular Volume 90.4 79-99 fL Mean Corpuscular Hemoglobin 32.1 27.0-33.0 pg Mean Corpuscular Hemoglobin Concent 35.5 32.0-36.0 g/dL Red Cell Distribution Width 12.4 11.0-15.5 % Platelet Count 80 L 130-400 K/uL Mean Platelet Volume 9.4 7.5-10.5 fL Nucleated Red Blood Cells 0.0 0.0-0.19 % Sodium Level 135 L 136-145 mmol/L Potassium Level 3.7 3.5-5.1 mmol/L Chloride Level 102 101-111 mmol/L Carbon Dioxide Level 26 21-32 mmol/L Blood Urea Nitrogen 9 7-18 mg/dL Creatinine 0.7 0.5-1.3 mg/dL Glomerular Filtration Rate Calc 105 >90 mL/min Random Glucose 109 H 70-105 mg/dL Total Calcium 8.1 L 8.5-10.1 mg/dL Magnesium Level 2.00 1.80-2.40 mg/dL Vancomycin Level Trough 11.4 # 10.0-20.0 UG/ML Whole Blood Glucose 147 H 70-110 MG/DL Immature Granulocyte % (Auto) 0.7 0-1 % Neutrophils (%) (Auto) 72.1 40.0-77.0 % Lymphocytes (%) (Auto) 16.3 L 21.0-51.0 % Monocytes (%) (Auto) 9.0 3.0-13.0 % Eosinophils (%) (Auto) 1.6 0.0-8.0 % Basophils (%) (Auto) 0.3 0.0-5.0 % Neutrophils # (Auto) 4.2 1.8-7.7 K/uL Lymphocytes # (Auto) 0.9 L 1.0-4.8 K/uL Monocytes # (Auto) 0.5 0.1-1.0 K/uL Eosinophils # (Auto) 0.09 0.00-0.70 K/uL Basophils # (Auto) 0.02 0.00-0.20 K/uL Absolute Immature Granulocyte (auto 0.04 0-1 K/uL ASSESSMENT: Left lower extremity cellulitis. Diabetes Mellitus. Thrombocytopenia. PLAN: Continue vancomycin per pharmacy protocol. Continue cefepime. Maintain left lower extremity elevated on 2 pillows. Continue pain management. Continue antidiabetics. Continue GI prophylaxis Change wrist restraints to plastic restraints. This case was reviewed and discussed with my supervising physician and the above assessment and plan was formulated and agreed upon. ATTESTATION BY PHYSICIAN I have seen and examined the patient. I reviewed the documentation, medical decision making, and treatment plan as noted by the mid-level provider above. I agree with the findings and plan of care. BILLY FREDERICK MD, MIRTA L [facility] Oct 06, 2024 15:46
[2024-10-06 16:00] VITALS: BP 127/77; PULSE 83; RESP 18; TEMP 97.8
[2024-10-06 20:00] VITALS: BP 125/64; PULSE 92; RESP 17; TEMP 99.2
[2024-10-07] VITALS (7 sets, daily range): BP systolic 114–143; BP diastolic 67–80; PULSE 80–91; RESP 16–19; TEMP 97.6–99.7; O2SAT 97
--- NOTE | 2024-10-07 14:24 | PN ---
INFECTIOUS DISEASE PROGRESS NOTE Date of Service: Oct 07, 2024 SUBJECTIVE: This 59 year old male patient is being seen today at bedside. No fever or chills. No nausea or vomiting. Patient is laying in bed. He is calm. Redness and swelling to left lower extremity has improved, currently elevated on pillow. he does reports discomfort to left lower extremity. He remains on antibiotics. No other issues or concerns at this time. We will follow patient closely. PHYSICAL EXAM EYES: Anicteric. Pupils equal and reactive. HENT: No oral thrush seen, moist Oral mucosa. NECK: Supple, no JVD or thyromegaly. LUNGS: Good air entry. No rales, no rhonchi. CARDIOVASCULAR: S1, S2 regular. No murmur heard. ABDOMEN: Soft, non tender, bowel sounds present, no organomegaly CENTRAL NERVOUS SYSTEM: Awake, alert, oriented x 3. SKIN: No rashes, no swelling. LYMPHATICS: No peripheral lymphadenopathy MUSCULOSKELETAL: No joint swelling, erythema or tenderness. EXTREMITIES: No cyanosis or clubbing. Left lower extremity cellulitis. BACK: No deformity, no pressure ulcer. GENITOURINARY: No dysuria or hematuria Vital Sign (Last 12 Hours) 10/07/24 10/07/24 10/07/24 10/07/24 04:00 08:00 08:00 12:00 Temp 99.5 97.5 98.6 Pulse 82 85 86 Resp 16 18 18 B/P (MAP) 132/72 121/77 115/67 Pulse Ox 97 97 97 98 O2 Delivery Room Air Room Air* Room Air Room Air O2 Flow Rate 0 FiO2 21 21 Intake & Output (last 24hrs) 10/06/24 10/06/24 10/07/24 15:00 23:00 07:00 Output Total 300 ml Balance -300 ml LABS: Laboratory: Test 10/06/24 03:51 10/05/24 22:36 Range/Units White Blood Count 5.0 4.8-10.8 K/uL Red Blood Count 3.65 L 4.50-6.20 MIL/uL Hemoglobin 11.7 L 14.0-18.0 g/dL Hematocrit 33.0 L 42-54 % Mean Corpuscular Volume 90.4 79-99 fL Mean Corpuscular Hemoglobin 32.1 27.0-33.0 pg Mean Corpuscular Hemoglobin Concent 35.5 32.0-36.0 g/dL Red Cell Distribution Width 12.4 11.0-15.5 % Platelet Count 80 L 130-400 K/uL Mean Platelet Volume 9.4 7.5-10.5 fL Nucleated Red Blood Cells 0.0 0.0-0.19 % Sodium Level 135 L 136-145 mmol/L Potassium Level 3.7 3.5-5.1 mmol/L Chloride Level 102 101-111 mmol/L Carbon Dioxide Level 26 21-32 mmol/L Blood Urea Nitrogen 9 7-18 mg/dL Creatinine 0.7 0.5-1.3 mg/dL Glomerular Filtration Rate Calc 105 >90 mL/min Random Glucose 109 H 70-105 mg/dL Total Calcium 8.1 L 8.5-10.1 mg/dL Magnesium Level 2.00 1.80-2.40 mg/dL Vancomycin Level Trough 11.4 # 10.0-20.0 UG/ML ASSESSMENT: Left lower extremity cellulitis. Diabetes Mellitus. Thrombocytopenia. PLAN: Continue vancomycin per pharmacy protocol. Continue cefepime. Maintain left lower extremity elevated on 2 pillows. Continue pain management. Continue antidiabetics. Continue GI prophylaxis This case was reviewed and discussed with my supervising physician and the above assessment and plan was formulated and agreed upon. JASON KITCHEN Oct 07, 2024 14:24
[2024-10-08] VITALS (7 sets, daily range): BP systolic 112–125; BP diastolic 59–76; PULSE 81–91; RESP 18–19; TEMP 97.5–99; O2SAT 98
[2024-10-08 04:32] LABS: NUCLEATED RED BLOOD CELLS 0.0 % (0.0-0.19); PLATELET COUNT (AUTO) 142.0 K/uL (130-400); RED BLOOD CELL COUNT(AUTO) 3.69 MIL/uL (4.50-6.20); RED CELL DISTRIBUTION WIDTH 12.4 % (11.0-15.5); WHITE BLOOD COUNT (AUTO) 4.7 K/uL (4.8-10.8)
[2024-10-08 04:44] LABS: CREATININE 0.5 mg/dL (0.5-1.3); GLOMERULAR FILTR. RATE CALC 116.0 mL/min (>90); GLUCOSE,RANDOM 109.0 mg/dL (70-105); SODIUM SERUM 138.0 mmol/L (136-145); UREA NITROGEN, BLOOD 9.0 mg/dL (7-18)
--- NOTE | 2024-10-08 11:45 | PN ---
INFECTIOUS DISEASE PROGRESS NOTE Date of Service: Oct 08, 2024 SUBJECTIVE: . this 59 year old male patient is being seen today at bedside. Patient denies chest pain or shortness of breath. Swelling and redness to left lower extremity is improving. He remains on Vancomycin and Cefepime for cellulits of left lower extremity. A low grade fever of 99.7 noted over night. Patient at this time is calm. Denies pain. No acute events over night. We continue to follow patient. PHYSICAL EXAM EYES: Anicteric. Pupils equal and reactive. HENT: No oral thrush seen, moist Oral mucosa. NECK: Supple, no JVD or thyromegaly. LUNGS: Good air entry. No rales, no rhonchi. CARDIOVASCULAR: S1, S2 regular. No murmur heard. ABDOMEN: Soft, non tender, bowel sounds present, no organomegaly CENTRAL NERVOUS SYSTEM: Awake, alert, oriented x 3. SKIN: No rashes, no swelling. LYMPHATICS: No peripheral lymphadenopathy MUSCULOSKELETAL: No joint swelling, erythema or tenderness. EXTREMITIES: No cyanosis or clubbing. Left lower extremity cellulitis, improving BACK: No deformity, no pressure ulcer. GENITOURINARY: No dysuria or hematuria Vital Sign (Last 12 Hours) 10/08/24 10/08/24 10/08/24 03:58 08:00 08:20 Temp 98.4 98.6 Pulse 91 91 Resp 18 19 B/P (MAP) 119/72 125/76 Pulse Ox 98 98 98 O2 Delivery Room Air Room Air* Room Air O2 Flow Rate 0 FiO2 21 21 Intake & Output (last 24hrs) 10/07/24 10/07/24 10/08/24 15:00 23:00 07:00 Intake Total 820 ml 800.0 ml 1850.0 ml Output Total 850 ml 800 ml Balance 820 ml -50.0 ml 1050.0 ml LABS: Laboratory: Test 10/08/24 03:44 10/07/24 13:59 Range/Units White Blood Count 4.7 L 4.8-10.8 K/uL Red Blood Count 3.69 L 4.50-6.20 MIL/uL Hemoglobin 12.0 L 14.0-18.0 g/dL Hematocrit 33.3 L 42-54 % Mean Corpuscular Volume 90.2 79-99 fL Mean Corpuscular Hemoglobin 32.5 27.0-33.0 pg Mean Corpuscular Hemoglobin Concent 36.0 32.0-36.0 g/dL Red Cell Distribution Width 12.4 11.0-15.5 % Platelet Count 142 # 130-400 K/uL Mean Platelet Volume 9.2 7.5-10.5 fL Nucleated Red Blood Cells 0.0 0.0-0.19 % Sodium Level 138 136-145 mmol/L Potassium Level 3.9 3.5-5.1 mmol/L Chloride Level 103 101-111 mmol/L Carbon Dioxide Level 28 21-32 mmol/L Blood Urea Nitrogen 9 7-18 mg/dL Creatinine 0.5 0.5-1.3 mg/dL Glomerular Filtration Rate Calc 116 >90 mL/min Random Glucose 109 H 70-105 mg/dL Total Calcium 8.6 8.5-10.1 mg/dL Magnesium Level 1.80 1.80-2.40 mg/dL Vancomycin Level Trough 11.5 10.0-20.0 UG/ML ASSESSMENT: Left lower extremity cellulitis. Diabetes Mellitus. Thrombocytopenia. PLAN: Continue vancomycin per pharmacy protocol. Continue cefepime. Maintain left lower extremity elevated on 2 pillows. Continue pain management. Continue antidiabetics. Continue GI prophylaxis This case was reviewed and discussed with my supervising physician and the above assessment and plan was formulated and agreed upon. This case has been discussed with my supervising physician Dr. De Luna. JASON KITCHEN [facility] Oct 08, 2024 11:45
[2024-10-09] VITALS (7 sets, daily range): BP systolic 115–130; BP diastolic 71–77; PULSE 81–91; RESP 18–19; TEMP 98.1–98.6; O2SAT 95
[2024-10-09 04:54] LABS: NUCLEATED RED BLOOD CELLS 0.0 % (0.0-0.19); PLATELET COUNT (AUTO) 182.0 K/uL (130-400); RED BLOOD CELL COUNT(AUTO) 4.0 MIL/uL (4.50-6.20); RED CELL DISTRIBUTION WIDTH 12.5 % (11.0-15.5); WHITE BLOOD COUNT (AUTO) 4.6 K/uL (4.8-10.8)
[2024-10-09 05:03] LABS: CREATININE 0.7 mg/dL (0.5-1.3); GLOMERULAR FILTR. RATE CALC 105.0 mL/min (>90); GLUCOSE,RANDOM 121.0 mg/dL (70-105); SODIUM SERUM 138.0 mmol/L (136-145); UREA NITROGEN, BLOOD 10.0 mg/dL (7-18)
--- NOTE | 2024-10-09 11:28 | PN ---
INFECTIOUS DISEASE PROGRESS NOTE Date of Service: Oct 09, 2024 SUBJECTIVE: This 59 year old male patient is being seen today at bedside. He is awake, alert and oriented x3. He has no fever or chills. No nausea or vomiting. Patient continues with elevation of left lower extremity. Swelling and redness has improved. He continues with Vancomycin and Cefepime. No other issues or concerns at this time. PHYSICAL EXAM EYES: Anicteric. Pupils equal and reactive. HENT: No oral thrush seen, moist Oral mucosa. NECK: Supple, no JVD or thyromegaly. LUNGS: Good air entry. No rales, no rhonchi. CARDIOVASCULAR: S1, S2 regular. No murmur heard. ABDOMEN: Soft, non tender, bowel sounds present, no organomegaly CENTRAL NERVOUS SYSTEM: Awake, alert, oriented x 3. SKIN: No rashes, no swelling. LYMPHATICS: No peripheral lymphadenopathy MUSCULOSKELETAL: No joint swelling, erythema or tenderness. EXTREMITIES: No cyanosis or clubbing. Left lower extremity cellulitis, improving BACK: No deformity, no pressure ulcer. GENITOURINARY: No dysuria or hematuria Vital Sign (Last 12 Hours) 10/09/24 10/09/24 10/09/24 04:05 08:17 08:45 Temp 98.4 98.6 Pulse 81 86 Resp 18 19 B/P (MAP) 118/74 130/77 Pulse Ox 98 95 95 O2 Delivery Room Air Room Air Room Air* O2 Flow Rate 0 FiO2 21 21 Intake & Output (last 24hrs) 10/08/24 10/08/24 10/09/24 15:00 23:00 07:00 Intake Total 850 ml 700.0 ml 300.0 ml Output Total 300 ml 1250 ml 600 ml Balance 550 ml -550.0 ml -300.0 ml LABS: Laboratory: Test 10/09/24 04:28 10/08/24 03:44 10/07/24 13:59 Range/Units White Blood Count 4.6 L 4.8-10.8 K/uL Red Blood Count 4.00 L 4.50-6.20 MIL/uL Hemoglobin 12.9 L 14.0-18.0 g/dL Hematocrit 36.6 L 42-54 % Mean Corpuscular Volume 91.5 79-99 fL Mean Corpuscular Hemoglobin 32.3 27.0-33.0 pg Mean Corpuscular Hemoglobin Concent 35.2 32.0-36.0 g/dL Red Cell Distribution Width 12.5 11.0-15.5 % Platelet Count 182 # 130-400 K/uL Mean Platelet Volume 9.3 7.5-10.5 fL Nucleated Red Blood Cells 0.0 0.0-0.19 % Sodium Level 138 136-145 mmol/L Potassium Level 4.1 3.5-5.1 mmol/L Chloride Level 103 101-111 mmol/L Carbon Dioxide Level 29 21-32 mmol/L Blood Urea Nitrogen 10 7-18 mg/dL Creatinine 0.7 0.5-1.3 mg/dL Glomerular Filtration Rate Calc 105 >90 mL/min Random Glucose 121 H 70-105 mg/dL Total Calcium 8.3 L 8.5-10.1 mg/dL Magnesium Level 1.80 1.80-2.40 mg/dL Vancomycin Level Trough 11.5 10.0-20.0 UG/ML ASSESSMENT: Left lower extremity cellulitis. Diabetes Mellitus. Thrombocytopenia. PLAN: Continue vancomycin per pharmacy protocol. Continue cefepime. Maintain left lower extremity elevated on 2 pillows. Continue pain management. Continue antidiabetics. Continue GI prophylaxis This case was reviewed and discussed with my supervising physician and the above assessment and plan was formulated and agreed upon. JASON KITCHEN Oct 09, 2024 11:28
[2024-10-10] VITALS (7 sets, daily range): BP systolic 115–131; BP diastolic 64–74; PULSE 79–88; RESP 16–19; TEMP 97.9–98.5; O2SAT 96–97
[2024-10-10 08:39] LABS: NUCLEATED RED BLOOD CELLS 0.0 % (0.0-0.19); PLATELET COUNT (AUTO) 153.0 K/uL (130-400); RED BLOOD CELL COUNT(AUTO) 3.67 MIL/uL (4.50-6.20); RED CELL DISTRIBUTION WIDTH 12.6 % (11.0-15.5); WHITE BLOOD COUNT (AUTO) 4.1 K/uL (4.8-10.8)
[2024-10-10 08:46] LABS: CREATININE 0.6 mg/dL (0.5-1.3); GLOMERULAR FILTR. RATE CALC 110.0 mL/min (>90); GLUCOSE,RANDOM 148.0 mg/dL (70-105); SODIUM SERUM 136.0 mmol/L (136-145); UREA NITROGEN, BLOOD 9.0 mg/dL (7-18)
[2024-10-10] MEDS: HYDROcodone/APAP 5/325 1 TAB TABLET PO PRN (09:04)
--- NOTE | 2024-10-10 12:14 | PN ---
INFECTIOUS DISEASE PROGRESS NOTE Date of Service: Oct 10, 2024 SUBJECTIVE: This 59 year old male patient is being seen today at bedside. He is awake, alert and oriented x3. He has no fever or chills. No nausea or vomiting. No chest pain or shortness of breath. Swelling and redness to left lower extremity has improved. He continues with antibiotics. No dysuria or hematuria. We continue to follow patient closely. PHYSICAL EXAM EYES: Anicteric. Pupils equal and reactive. HENT: No oral thrush seen, moist Oral mucosa. NECK: Supple, no JVD or thyromegaly. LUNGS: Good air entry. No rales, no rhonchi. CARDIOVASCULAR: S1, S2 regular. No murmur heard. ABDOMEN: Soft, non tender, bowel sounds present, no organomegaly CENTRAL NERVOUS SYSTEM: Awake, alert, oriented x 3. SKIN: No rashes, no swelling. LYMPHATICS: No peripheral lymphadenopathy MUSCULOSKELETAL: No joint swelling, erythema or tenderness. EXTREMITIES: No cyanosis or clubbing. Left lower extremity cellulitis, improving BACK: No deformity, no pressure ulcer. GENITOURINARY: No dysuria or hematuria Vital Sign (Last 12 Hours) 10/10/24 10/10/24 10/10/24 10/10/24 03:57 08:00 08:00 11:28 Temp 98.1 98.4 98.2 Pulse 88 79 81 Resp 19 17 16 B/P (MAP) 129/72 121/64 115/73 Pulse Ox 96 97 97 96 O2 Delivery Room Air Room Air Room Air* Room Air O2 Flow Rate 0 FiO2 21 21 Intake & Output (last 24hrs) 10/09/24 10/09/24 10/10/24 15:00 23:00 07:00 Intake Total 950 ml 700.0 ml 50.0 ml Output Total 750 ml Balance 950 ml 700.0 ml -700.0 ml LABS: Laboratory: Test 10/10/24 08:23 10/09/24 14:50 Range/Units White Blood Count 4.1 L 4.8-10.8 K/uL Red Blood Count 3.67 L 4.50-6.20 MIL/uL Hemoglobin 11.9 L 14.0-18.0 g/dL Hematocrit 33.6 L 42-54 % Mean Corpuscular Volume 91.6 79-99 fL Mean Corpuscular Hemoglobin 32.4 27.0-33.0 pg Mean Corpuscular Hemoglobin Concent 35.4 32.0-36.0 g/dL Red Cell Distribution Width 12.6 11.0-15.5 % Platelet Count 153 130-400 K/uL Mean Platelet Volume 8.9 7.5-10.5 fL Nucleated Red Blood Cells 0.0 0.0-0.19 % Sodium Level 136 136-145 mmol/L Potassium Level 3.9 3.5-5.1 mmol/L Chloride Level 102 101-111 mmol/L Carbon Dioxide Level 31 21-32 mmol/L Blood Urea Nitrogen 9 7-18 mg/dL Creatinine 0.6 0.5-1.3 mg/dL Glomerular Filtration Rate Calc 110 >90 mL/min Random Glucose 148 H 70-105 mg/dL Total Calcium 8.1 L 8.5-10.1 mg/dL Vancomycin Level Trough 10.8 10.0-20.0 UG/ML ASSESSMENT: Left lower extremity cellulitis. Diabetes Mellitus. Thrombocytopenia, improved. PLAN: Continue vancomycin per pharmacy protocol. Continue cefepime. Maintain left lower extremity elevated on 2 pillows. Continue pain management. Continue antidiabetics. Continue GI prophylaxis Plan to D/C patient tomorrow. This case was reviewed and discussed with my supervising physician and the above assessment and plan was formulated and agreed upon. JASON KITCHENP Oct 10, 2024 12:14
[2024-10-11 03:58] VITALS: BP 109/69; PULSE 82; RESP 19; TEMP 98.1
[2024-10-11] MEDS ORDERED: PROMETHAZINE HCL 25 MG TABLET PO PRN (05:30)
[2024-10-11 07:56] VITALS: BP 128/85; PULSE 75; RESP 18; TEMP 98.2
[2024-10-11 08:00] VITALS: O2SAT 95
[2024-10-11] MEDS: LISINOPRIL 20 MG TABLET PO SCH (09:45)
[2024-10-11 11:21] VITALS: BP 129/69; PULSE 80; RESP 18; TEMP 97.9
--- NOTE | 2024-10-11 13:13 | NUR ---
DISCHARGE PATIENT RECEIVED DISCHARGE ORDERS FROM MD FREDERICK. YOLY WROTE PRESCRIPTION DOWN FOR [facility] AND PATIENT DISCHARGED VIA WHEELCHAIR BY DEEP PAUL. ALL IVS DISCONTINUED.
--- NOTE | 2024-10-11 14:46 | DS ---
Discharge Summary DIAGNOSE(S): Cellulitis to left lower extremity HOSPITAL COURSE SUMMARY: A 59-year-old male with history of diabetes mellitus, hypertension, and obesity, who was brought in from the group home with left leg pain, swelling, and redness. The patient claims symptoms started about 3 days ago with left leg pain and redness. He was being treated with clindamycin without improvement. No history of trauma or fall. Denies insect bite. Due to increasing spread to the thigh, the patient was sent to the emergency room for further evaluation. The patient denied history of similar infection in the past. Venous Doppler came back unremarkable. X-ray also unremarkable. Patient was admitted and started on cefepime and vancomycin. Patient left lower extremity was elevated with pillows to help with swelling. He was able to received 6-7 day course of antibiotics. Swelling and redness significantly improved. Patient will be going home with oral antibiotics. Script in chart. SHAKER WASHER(S): None PROCEDURE(S)/TREATMENT(S): Venous Doppler X-ray PROBLEM(S): * Left lower extremity cellulitis. * Diabetes mellitus. * Hypertension. * Obesity. * Thrombocytopenia, improved DISCHARGE INSTRUCTIONS: Patient will continue on keflex PO once D/C at his facility Tylenol and codeine for pain management elevate left leg This case has been discussed with my supervising physician Dr. De Luna. The case has been discussed and agreed upon. Home Meds Active Scripts Clindamycin HCl (Clindamycin HCl) 300 Mg Capsule, 1 CAP PO QID for 10 Days, #40 CAP 0 Refills Prov:[place] JORGE [facility] 10/03/24 Reported Medications Metformin HCl (Metformin HCl) 1,000 Mg Tablet, 1 TAB PO BIDMEALS for 30 Days, #60 TAB 0 Refills 10/04/24 Tolnaftate (Tolnaftate) 1 % Cream..g., 1 APPL TP BID for 14 Days, #30 GM 0 Refills 10/04/24 Terazosin HCl (Terazosin HCl) 10 Mg Capsule, 1 CAP PO HS for 30 Days, #30 CAP 0 Refills 10/04/24 Promethazine HCl (Promethazine HCl) 25 Mg Tablet, 1 TAB PO Q6HPRN PRN for nausea/vomiting for 7 Days, #28 TAB 0 Refills 10/04/24 Acetaminophen (Acetaminophen) 325 Mg Tablet, 1 TAB PO TID PRN for pain or fever for 30 Days, #30 TAB 0 Refills 10/04/24 Insulin Regular, Human (Novolin R) 100 Unit/Ml Vial, SQ ACHS, VIAL 10/04/24 NPH, Human Insulin Isophane (Novolin N) 100 Unit/Ml Vial, 15 UNITS SQ BIDMEALS, VIAL 10/04/24 Lisinopril (Lisinopril) 20 Mg Tablet, 1 TAB PO DAILY for 30 Days, #30 TAB 0 Refills 10/04/24 Glipizide (Glipizide) 10 Mg Tablet, 1 TAB PO AM for 30 Days, #60 TAB 0 Refills 10/04/24 Famotidine (Famotidine) 20 Mg Tablet, 1 TAB PO BID for 30 Days, #60 TAB 0 Refills 10/04/24 Escitalopram Oxalate (Escitalopram Oxalate) 10 Mg Tablet, 1 TAB PO HS for 30 Days, #30 TAB 0 Refills 10/04/24 Diphenhydramine HCl (Diphenhydramine HCl) 50 Mg Capsule, 50 MG PO BID, CAP 10/04/24 Clotrimazole (Clotrimazole) 1 % Cream..g., 15 GM TP BID 10/04/24 Cetirizine HCl (Cetirizine HCl) 10 Mg Tab.chew, 1 TAB PO DAILY for allergy symptoms for 30 Days, #30 TAB 0 Refills 10/04/24 Carvedilol (Carvedilol) 3.125 Mg Tablet, 1 TAB PO BID for 30 Days, #60 TAB 0 Refills 10/04/24 Amoxicillin (Amoxicillin) 500 Mg Capsule, 1 CAP PO TID for 10 Days, #30 CAP 0 Refills 10/04/24 Time spent arranging discharge: 1-30 minutes JASON KITCHEN [facility] Oct 11, 2024 14:46
[2024-10-11] MEDS ORDERED: TERAZOSIN 5MG CAP PO SCH (21:00)
== END 2024-10-11 13:17 | DRG 603 ==
LOC: EEVIPCON 10:08 → EDH 10:08 → EDHIP 11:13 → 4DH 17:23
PROVIDERS: ADMIT Internal Medicine Infectious Disease; ATTEND Internal Medicine Infectious Disease
DX: L03.116 Cellulitis of left lower limb (principal); E11.9 Type 2 diabetes mellitus without complications; I10 Essential (primary) hypertension; E66.9 Obesity, unspecified; D69.6 Thrombocytopenia, unspecified; Z78.1 Physical restraint status; Z83.3 Family history of diabetes mellitus; Z68.31 Body mass index [BMI] 31.0-31.9, adult
CPT/HCPCS: 36415; 73590; 80048; 80202; 82948; 83036; 83605; 83735; 84145; 84450; 84460; 85025; 85027; 85651; 86140; 93971; 99284; 99285; G0378; J0692; J0696; J1650; J2270; J2405; J3373; J3475; J3370